=== PATIENT | female | born 2005 | race Caucasian/White ===

== ENCOUNTER 2025-03-08 20:22 | Emergency (ER) | payer BC ==
[2025-03-08 20:43] LABS: Glucose, Urine (Dipstick) Normal (Negative); Leukocyte 100 (Negative); Protein, Urine (Dipstick) Negative (Neg-Trace); Specific Gravity, Urine 1.015 (1.005-1.030)
[2025-03-08 20:57] LABS: Pregnancy Test - Urine (BHCG) Negative (Negative); Pregu Control Background? CLEAR/WHITE (CLR/WHITE); Pregu Control Bar Appear? YES (CONTROL BAR)
[2025-03-08 20:58] LABS: Bacteria/HPF 1+ HPF (None Seen); CAUTI Indications for Culture Dysuria,urgency,freq; Mucous/LPF 1+ LPF (<2+); RBC/HPF None Seen HPF (0-3)
[2025-03-08 20:59] LABS: Urine Culture Reflex No No
[2025-03-08] MEDS ORDERED: cefTRIAXone (ROCEPHIN) 1 GM VIAL ONE (21:45)
[2025-03-08] MEDS ORDERED: Acetaminophen 500 MG TAB ONE (21:45)
[2025-03-08] MEDS ORDERED: cefTRIAXone (ROCEPHIN) 1 GM VIAL IM SCH (22:00)
== END 2025-03-08 22:09 | disposition home or self-care (01) ==
LOC: CSHERS 20:22
DX: N39.0 Urinary tract infection, site not specified (principal); R68.83 Chills (without fever); R51.9 Headache, unspecified
CPT/HCPCS: 81001; 81025; 87426; 96372; 99284; J0696